=== PATIENT | male | born 1990 | race Caucasian/White ===

== ENCOUNTER 2023-04-03 09:59 | Emergency (ER) | payer OTHER ==
[2023-04-03] MEDS ORDERED: LIDOCAINE 1% INJ 10MG/ML (20 ML MDV) SQ ONE (10:20)
[2023-04-03] MEDS ORDERED: MORPHINE SULFATE 4 MG/ML SYRINGE IVP STA ×2 (10:20→11:50)
[2023-04-03] MEDS ORDERED: DIPH,PERTUS(ACELL)TETVAC-LF 0.5 ML VIAL IM ONE (10:20)
[2023-04-03] MEDS ORDERED: KETOROLAC 15 MG/ML 1 ML VIAL IVP STA (10:23)
[2023-04-03 10:28] VITALS: BP 148/78; PULSE 64; RESP 20; TEMP 98.4
--- NOTE | 2023-04-03 11:21 | XR ---
EXAMINATION TYPE: XR hand complete RT DATE OF EXAM: 04/03/2023 COMPARISON: NONE HISTORY: Pain second digit TECHNIQUE: Three views are submitted. FINDINGS: There is a soft tissue injury to the distal margin of the second digit with a fracture of the tuft. P artial amputation of the soft tissues suspected. Remaining osseous structures intact. IMPRESSION: 1. Soft tissue injury distal second digit with fracture tuft distal phalanx.
[2023-04-03] MEDS ORDERED: SODIUM CHLORIDE 0.9% 500 ML 500 ML IV ONE (11:38)
--- NOTE | 2023-04-03 12:28 | ED ---
General Adult HPI - General Chief complaint: Extremity Injury, Upper Stated complaint: right finger severed Time Seen by Provider: 04/03/23 10:20 Source: patient, RN notes reviewed Mode of arrival: ambulatory Limitations: no limitations - History of Present Illness Initial comments: 32-year-old male with no significant past medical history presents the emergency department with laceration. 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 Denies anticoagulant use. Denies numbness, tingling, weakness. Did not take anything for pain prior to arrival. - Related Data Previous Rx's Medication Instructions Recorded Cephalexin [Keflex] 500 mg PO Q6HR #40 cap 04/03/23 HYDROcodone/APAP 5-325MG [[place] 1 tab PO Q6HR PRN 3 Days #12 tab 04/03/23 5-325] HYDROcodone/APAP 5-325MG [[place] 5] 1 each PO Q6HR PRN #9 tab 04/03/23 Allergies Allergy/AdvReac Type Severity Reaction Status Date / Time No Known Allergies Allergy Verified 04/03/23 10:05 Review of Systems ROS Statement: Those systems with pertinent positive or pertinent negative responses have been documented in the HPI. ROS Other: All systems not noted in ROS Statement are negative. Past Medical History Past Medical History: No Reported History History of Any Multi-Drug Resistant Organisms: None Reported Past Surgical History: Appendectomy, Orthopedic Surgery Past Psychological History: No Psychological Hx Reported Smoking Status: Never smoker Past Alcohol Use History: None Reported Past Drug Use History: None Reported General Exam - General Exam Comments Initial Comments: General: Alert, in no acute distress Head: atraumatic normocephalic. Eyes PERRL, EOMI intact, mucous membranes mois t, right second digit laceration to tip. Partial nail bed removal. Tender to palpation Respiratory: Lungs clear to auscultation bilaterally Cardiovascular: Heart rate regular Abdominal: Soft without guarding or rebound Extremities: Normal inspection with full range of motion and normal capillary refill Neuroogic: alert and oriented 3, CN II-XII intact, able to ambulate with steady gait Skin: warm dry and intact with normal color Limitations: no limitations Course Vital Signs 04/03/23 10:03 Temperature 98.4 F Pulse Rate 64 Respiratory 20 Rate Blood Pressure 148/78 O2 Sat by Pulse 99 Oximetry - Reevaluation(s) Reevaluation #1: 04/03/23 11:15 initial history and physical exam were performed. Patient offered morphine however he declined stating that he would like to go back to work. Medical Decision Making - Medical Decision Making Was pt. sent in by a medical professional or institution ([facility], [employer], urgent care, hospital, or fci...) When possible be specific @ -[No] Did you speak to anyone other than the patient for history (EMS, parent, family, police, friend...)? What history was obtained from this source @ -[No] Did you review nursing and triage notes (agree or disagree)? Why? @ -[I reviewed and agree with nursing and triage notes] Were old charts reviewed (outside hosp., previous admission, EMS record, old EKG, old radiological studies, urgent care reports/EKG's, fci records)? Report findings @ -[No old charts were reviewed] Differential Diagnosis (chest pain, altered mental status, abdominal pain women, abdominal pain men, vaginal bleeding, weakness, fever, dyspnea, syncope, headache, dizziness, GI bleed, back pain, seizure, CVA, palpatations, mental health, musculoskeletal)? @ -[not applicable] EKG interpreted by me (3pts min.). @ -[As above] X-rays interpreted by me (1pt min.). @ Right hand x-ray reveals tuft fracture to right second digit. No foreign body CT interpreted by me (1pt min.). @ -[None done] U/S interpreted by me (1pt. min.). @ -[None done] What testing was considered but not performed or refused? (CT, X-rays, U/S, labs)? Why? @ -[None] What meds were considered but not given or refused? Why? @ -[None] Did you discuss the management of the patient with other professionals (professionals i.e. [facility], [employer] WORK[employer], lab, RT, psych nurse, social sciences professor, tap and die maker technician, teacher, real estate utilization officer, rifle case repairer)? Give summary @ -[No] Was smoking cessation discussed for >3mins.? @ -[No] Was critical care preformed (if so, how long)? @ -[No] Were there social determinants of health that impacted care today? How? (Homelessness, low income, unemployed, alcoholism, drug addiction, transportation, low edu. Level, literacy, decrease access to med. care, care home, rehab)? @ -[No] Was there de-escalation of care discussed even if they declined (Discuss DNR or withdrawal of care, Hospice)? DNR status @ -[No] What co-morbidities impacted this encounter? (DM, HTN, Smoking, COPD, CAD, Cancer, CVA, ARF, Chemo, Hep., AIDS, mental health diagnosis, sleep apnea, morbid obesity)? @ -[None] Was patient admitted / discharged? Hospital course, mention meds given and route, prescriptions, significant lab abnormalities, going to OR and other pertinent info. @ -Discharged. This is a 32-year-old male presents to the emergency department with finger problem. Patient is a thorough history and physical exam performed. Physical exam reveals soft tissue laceration at the distal tip of second right digit. Markedly tender. Patient had x-rays performed which revealed open tuft fracture. Patient given Ancef. Patient presented [facility], [place] and recommend close follow-up with PCP in 2-3 days. Return precautions discussed. Patient discharged in stable condition. Case discussed with Dr. Lezama, [facility] recent clinic Undiagnosed new problem with uncertain prognosis? @ -[No] Drug Therapy requiring intensive monitoring for toxicity (Heparin, Nitro, Insulin, Cardizem)? @ -[No] Were any procedures done? @ -[No] Diagnosis/symptom? @ -Right finger lacertion - Tuft Fracture Acute, or Chronic, or Acute on Chronic? @ -Acute Uncomplicated (without systemic symptoms) or Complicated (systemic symptoms)? @ -Uncomplicated Side effects of treatment? @ -[No] Exacerbation, Progression, or Severe Exacerbation? @ -[No] Poses a threat to life or bodily function? How? (Chest pain, [place], CA, pneumonia, PE, COPD, DKA, ARF, appy, cholecystitis, CVA, Diverticulitis, Homicidal, Suicidal, threat to staff... and all critical care pts) @ Moderate likelihood, open fracture Disposition Clinical Impression: Open fracture of distal phalangeal tuft with nonunion Disposition: HOME SELF-CARE Condition: Stable Instructions (If sedation given, give patient instructions): Finger Fracture (ED) Additional Instructions: Please take antibiotic as prescribed Please follow-up with hand or primary care in 7 days Prescriptions: Cephalexin [Keflex] 500 mg PO Q6HR #40 cap HYDROcodone/APAP 5-325MG [[place] 5-325] 1 tab PO Q6HR PRN 3 Days #12 tab PRN Reason: Severe Pain HYDROcodone/APAP 5-325MG [[place] 5] 1 each PO Q6HR PRN #9 tab PRN Reason: Pain Is patient prescribed a controlled substance at d/c from ED?: No Referrals: None,Stated [Primary Care Provider] - 1-2 days Jaclyn Myers DO [Doctor of Osteopathic Medicine] - 1-2 days Time of Disposition: 12:24
== END 2023-04-03 12:55 | disposition home or self-care (01) ==
LOC: EC 09:59
DX: S62.630B Displaced fracture of distal phalanx of right index finger, initial encounter for open fracture (principal); Z23 Encounter for immunization; W23.0XXA Caught, crushed, jammed, or pinched between moving objects, initial encounter
CPT/HCPCS: 73130; 90715; 99283; 96365; 96375 ×2; 90471; J2270; J0690; J2001; J1885